=== PATIENT | male | born 1990 | race African-American/Black ===

== ENCOUNTER 2022-02-20 10:11 | Outpatient (CLI) | payer BC | END 2022-02-20 19:13 | disposition home or self-care (01) | LOC: CT 10:11 | PROVIDERS: ATTEND Internal Medicine Gastroenterology | DX: R10.30 Lower abdominal pain, unspecified (principal) | CPT/HCPCS: Q9963 ==

== ENCOUNTER 2022-05-15 09:59 | Emergency (ER) | payer BC ==
[~2022-05-15] VITALS: Ht 167.6 cm; Wt 68.0 kg
[2022-05-15 10:55] LABS: PLATELET COUNT 218 K/uL (142-355)
[2022-05-15 11:14] LABS: PARTIAL THROMBOPLASTIN TIME 27.3 SECONDS (24.5-33.6)
[2022-05-15 12:46] VITALS: BP 127/70; TEMP 98
== END 2022-05-15 12:47 | disposition home or self-care (01) ==
LOC: ED 09:59
PROVIDERS: Emergency Medicine
DX: M54.89 Other dorsalgia (principal)
CPT/HCPCS: 80053; 84484; 85027; 85379; 85610; 85730; 93005; 99283; Q9963